=== PATIENT | female | born 1930 | race Caucasian/White ===

== ENCOUNTER 2018-11-05 16:50 | Inpatient (IN) | payer BC, OTHER ==
[2018-11-05 16:58] VITALS: BMI 22.2
--- NOTE | 2018-11-05 16:58 | PDOC ---
Rapid Medical Evaluation Chief Complaint: Shortness of Breath Medical Evaluation: 11/05/18 16:53 I have performed a brief in-person evaluation of this patient. The patient presents with a chief complaint of:SOB, no CP// Palp / pressure - sent from Dr Wilcox Pertinent physical exam findings: Tachypnea ,moist I have ordered the following: EKG, CMP, CBC, BNP, The patient will proceed to the ED for further evaluation. 11/05/18 16:55 Discharge Disposition - Diagnosis SOB (shortness of breath) - Referrals - Patient Instructions - Post Discharge Activity
[2018-11-05 17:26] LABS: BASO % 0.8 % (0-2.0); EOS % 0.5 % (0-4.5); HEMATOCRIT 33.5 % (32.4-45.2); HEMOGLOBIN 11.1 GM/dL (10.7-15.3); LYMPH % 11.6 % (8-40); MCH 28.3 pg (25.7-33.7); MEAN CELL VOLUME 85.8 fl (80-96); MEAN PLT VOLUME 8.9 fl (7.5-11.1); NEUT % 79.1 % (42.8-82.8); PLATELET COUNT 211 K/MM3 (134-434); RDW 16.9 % (11.6-15.6); WHITE BLOOD COUNT 7.4 K/mm3 (4.0-10.0)
[2018-11-05 17:42] LABS: INR 1.6 (0.83-1.09)
[2018-11-05 17:57] LABS: ALBUMIN 3.6 g/dl (3.4-5.0); ALK PHOS 78 U/L (45-117); ANION GAP 10 MMOL/L (8-16); BILIRUBIN,TOTAL 1.4 mg/dL (0.2-1); BLOOD UREA NITROGEN 25 mg/dL (7-18); CALCIUM 8.6 mg/dL (8.5-10.1); CHLORIDE 104 mmol/L (98-107); CO2 21 mmol/L (21-32); CREATININE 0.9 mg/dL (0.55-1.3); GLUCOSE,RANDOM 99 mg/dL (74-106); N-TERMINAL BNP 4852.3 pg/ml (5-450); POTASSIUM 3.9 mmol/L (3.5-5.1); SGOT/AST 39 U/L (15-37); SGPT/ALT 42 U/L (13-61); SODIUM 135 mmol/L (136-145); TOT PROT 6.8 g/dl (6.4-8.2)
--- NOTE | 2018-11-05 17:58 | PDOC ---
Attending Attestation - HPI HPI: 11/05/18 18:11 The patient is an 88 year old female with a significant past medical history of asthma and hypertension, who presents to the emergency department today, accompanied by and children, complaining of shortness of breath for approximately 4 days, which is worsened upon exertion. Family notes the patient has also had a productive cough. The patient denies any pain. The patient denies chest pain, shortness of breath, headache and dizziness. Denies fever, chills, nausea, vomit, diarrhea and constipation. Denies dysuria, frequency, urgency and hematuria. Allergies: NKA Past surgical history: Social history: No reported PCP: Dr. Wilcox - Physicial Exam PE: 11/05/18 18:23 GENERAL: The patient is in no acute distress. HEAD: Normal with no signs of trauma. EYES: PERRLA, EOMI, sclera anicteric, conjunctiva clear. ENT: Ears normal, nares patent, oropharynx clear without exudates. Moist mucous membranes. NECK: Normal range of motion, supple without lymphadenopathy, JVD, or masses. LUNGS: (+) Dysmic. (+) Basilar crackles. HEART: Heart irregularly irregular. (+) tachycardic. No murmur. ABDOMEN: Soft, nontender, normoactive bowel sounds. No guarding, no rebound. No masses palpable. EXTREMITIES: (+) Bilateral pitting edema 3+ to bilateral knees. Normal range of motion. No clubbing or cyanosis. No erythema, or tenderness. NEUROLOGICAL: Cranial nerves II through XII grossly intact. Normal speech. No focal neurological deficits. MUSCULOSKELETAL: Back non-tender to palpation, no CVA tenderness SKIN: Warm, Dry, normal turgor, no rashes or lesions noted. <Jen Clements - Last Filed: 11/05/18 18:23> - Resident Resident Name: Dangelo Rodriguez - ED Attending Attestation I have performed the following: I have examined & evaluated the patient, The case was reviewed & discussed with the resident, I agree w/resident's findings & plan, Exceptions are as noted - Critical Care Time Total Critical Care Time: 35 Critical Care Statement: The care of this patient involved high complexity decision making to prevent further life threatening deterioration of the patient 's condition and/or to evaluate & treat vital organ system(s) failure or risk of failure. - Medical Decision Making 11/05/18 18:24 Laboratory Tests 11/05/18 11/05/18 11/05/18 17:11 17:11 17:11 WBC 7.4 Hgb 11.1 Hct 33.5 Plt Count 211 INR 1.60 H BUN 25 H Creatinine 0.9 Total Bilirubin 1.4 H AST 39 H ALT 42 Creatine Kinase 123 Troponin I 0.05 B-Natriuretic Peptide 4852.3 H EKG: Afib rate of 123 bpm, axis nml, no st elevations, (+) depressions v4-v6, t waves upright, CXR: Will admit for new onset Afib Pt is a poor historian Can not tell us any of her past medical history Can not tell us her medications Will contact her pharmacy Pharmacy: Atenolol 50mg bid Levothyroxine 25mcg daily Xeralto 20mg daily Advair 1 puff bid ?Simvastatin 20mg (last filled in July) Olmesartan 20/5/12.5 (last filled in June) Pt given Cardizem 10mg with improvement from 150s to 100 Po cardizem ordered CXR - Cardiomegaly, ? left pleural effusion ADMIT to hospitalist overnight for Dr Wilcox <Suir Lam - Last Filed: 11/11/18 10:33> Attestations - Attestations 11/05/18 18:11 Documentation prepared by Jen Clements, acting as medical insurance verifier for Suri Lam MD. <Jen Clements - Last Filed: 11/05/18 18:23>
--- NOTE | 2018-11-05 18:01 | PDOC ---
History of Present Illness - General Chief Complaint: Shortness of Breath Stated Complaint: SHORT OF BREATH WEAKNESS Time Seen by Provider: 11/05/18 17:52 - History of Present Illness Initial Comments: 11/05/18 17:59 88 yo F with h/o HTN, CAD s/p stent placement x 1, who p/w lightheadedness, and SOB. Patient reports 4 days of worsening, Garcia, lightheadedness, fatigue, BL LE swelling. Reports ongoing symptoms x 2 years with no identifiable triggers or alleviators. Denies recent fall, LOC, head/neck/back trauma. No home duoneb or O2 requirements. Patient ambulatory without assistance. Lives at home with . Patient denies ARREGUIN, vision change, palpitations, orthopnea, PND, leg pain, N/V, F ,C, CP, SOB, urinary complaints, abdominal pain, diarrhea, constipation, BPR, hematuira, sensory changes. PMHx: as noted above. Denies h/o MO, CABG, DVT/PE, CVA/TIA. ROS: as noted SHx: Denies Etoh, IVDA. Denies tobacco use. Allergies: NKDA PMD: Dr. Wilcox Past History - Past Medical History Allergies/Adverse Reactions: Allergies Allergy/AdvReac Type Severity Reaction Status Date / Time No Known Allergies Allergy Verified 11/05/18 16:58 Asthma: Yes COPD: No HTN: Yes Hypercholesterolemia: Yes - Suicide/Smoking/Psychosocial Hx Smoking History: Never smoked Have you smoked in the past 12 months: No Information on smoking cessation initiated: No Hx Alcohol Use: No Drug/Substance Use Hx: No Review of Systems - Review of Systems Comments:: 11/05/18 18:00 GENERAL/CONSTITUTIONAL: No fever or chills. No weakness. HEAD, EYES, EARS, NOSE AND THROAT: No change in vision. No ear pain or discharge. No sore throat. CARDIOVASCULAR: + SOB. No chest pain. RESPIRATORY: No cough, wheezing, or hemoptysis. GASTROINTESTINAL: No nausea, vomiting, diarrhea or constipation. GENITOURINARY: No dysuria, frequency, or change in urination. MUSCULOSKELETAL: No joint or muscle swelling or pain. No neck or back pain. SKIN: No rash NEUROLOGIC: + lightheaded. No headache, vertigo, loss of consciousness, or change in strength/sensation. ENDOCRINE: No increased thirst. No abnormal weight change HEMATOLOGIC/LYMPHATIC: No anemia, easy bleeding, or history of blood clots. ALLERGIC/IMMUNOLOGIC: No hives or skin allergy. *Physical Exam - Vital Signs Last Vital Signs Temp Pulse Resp BP Pulse Ox 97.2 F L 97 H 26 H 90/50 L 93 L 11/05/18 16:53 11/05/18 16:53 11/05/18 16:53 11/05/18 16:53 11/05/18 16:53 - Physical Exam Comments: 11/05/18 18:00 GENERAL: Awake, alert, and fully oriented, in no acute distress HEAD: No signs of trauma, normocephalic, atraumatic EYES: PERRLA, EOMI, sclera anicteric, conjunctiva clear ENT: Hearing grossly normal, nares patent, oropharynx clear without exudates. Moist mucosa NECK: Normal ROM, supple, no lymphadenopathy, JVD, or masses LUNGS: + diminshed BL lung sounds at bases. difficutly speaking in full sentences,absent rales. HEART: Irregular rate and rhythm, normal S1 and S2, no murmurs, rubs or gallops , peripheral pulses normal and equal bilaterally. ABDOMEN: Soft, nontender, normoactive bowel sounds. No guarding, no rebound. No masses EXTREMITIES : 2+ pitting edema. Normal inspection, Normal range of motion. No clubbing or cyanosis. Peripheral pulses 2 + symmetric throughout. NEUROLOGICAL: Cranial nerves II through XII grossly intact. Normal speech, normal gait, no focal sensorimotor deficits SKIN: Warm, Dry, normal turgor, no rashes or lesions noted Moderate Sedation - Procedure Monitoring Vital Signs: Procedure Monitoring Vital Signs Temperature 97.2 F L 11/05/18 16:53 Pulse Rate 97 H 11/05/18 16:53 Respiratory Rate 26 H 11/05/18 16:53 Blood Pressure 90/50 L 11/05/18 16:53 O2 Sat by Pulse Oximetry (%) 93 L 11/05/18 16:53 Heart Score/ECG Review - History History: Slightly suspicious - Electrocardiogram EKG: Non specific repolarization disturbance - Age Age: >/= 65 - Risk Factors Risk Factors Heart Score: Yes Hx Hypercholesterolemia, Yes Hx Hypertension, Yes Smoking History, Yes Positive family hx of cardiac disease Based on the list above the patient has:: >/=3 risk factors or Hx atherosclerotic disease - Troponin Troponin: </= normal limit - Score Heart Score - Total: 5 ED Treatment Course - LABORATORY CBC & Chemistry Diagram: 11/05/18 17:11 11/05/18 17:11 - ADDITIONAL ORDERS Additional order review: Laboratory Results 11/05/18 17:11 PT with INR 19.00 H INR 1.60 H 11/05/18 17:11 RBC 3.90 MCV 85.8 MCHC 33.0 RDW 16.9 H MPV 8.9 Neutrophils % 79.1 Lymphocytes % 11.6 Monocytes % 8.0 Eosinophils % 0.5 Basophils % 0.8 Medical Decision Making - Medical Decision Making 11/05/18 18:18 88 yo F with h/o HTN, CAD s/p stent placement x 1, who p/w lightheadedness, and SOB. BP 90/50, RR 26, 93 %O2 RA. Diminished lung sounds BL bases. heart irregular rate and rhythm. BL LE 2 + pitting edema.Denies palpitations ,N/V, F,C , CP, urinary complaints, abdominal pain, diarrhea, constipation, BPR, hematuira , sensory changes. ACS/MO r/o. Will consider cardiac dysarrythmia, CHF, PNA, pericardial and pleural effusion. Low risk PE based on Weils criteria. ED Course: Patien O2 declined to 85 % RA. Placed on 5 L NC. O2 now 100% EKG: Afib w/ RvR. HR 123, Q waves V2/V3. Nml R wave progression. Nml interval duration. Patient does not recall past h/o Af-ib, but is on eliquis (unknown reason). Lasix 40, [id number], ASA 11/05/18 18:47 CBC: Unremarkable Trop: Neg BNP: 4852 11/05/18 18:54 CXR: Left sided pleural effusion 11/05/18 18:54 Heart score ~5 11/05/18 18:55 Plan to admit tele. 11/05/18 18:[address] Camacho. Admit to telemetry. *DC/Admit/Observation/Transfer Diagnosis at time of Disposition: SOB (shortness of breath) Acute CHF Qualifiers: Heart failure type: unspecified Qualified Code(s): I50.9 - Heart failure, unspecified - Discharge Dispostion Condition at time of disposition: Stable Decision to Admit order: Yes - Referrals Referrals: Tesha Wilcox MD [Primary Care Provider] - - Patient Instructions - Post Discharge Activity
[2018-11-05] MEDS ORDERED: dilTIAZem HCL 50 MG/10 ML - 10 ML VIAL IVPUSH ONE (18:02)
[2018-11-05] MEDS ORDERED: FUROSEMIDE 40 MG/4 ML INJECTABLE VIAL IVPUSH ONE (18:02)
[2018-11-05] MEDS ORDERED: ASPIRIN 81 MG CHEWABLE TABLETS PO ONE (18:11)
[2018-11-05] MEDS ORDERED: FUROSEMIDE 40 MG/4 ML INJECTABLE VIAL ONE (18:23)
[2018-11-05] MEDS ORDERED: dilTIAZem HCL 30 MG TABLET (FP) PO ONE (18:24)
[2018-11-05] MEDS ORDERED: ASPIRIN 81 MG CHEWABLE TABLETS ONE (18:30)
[2018-11-05] MEDS ORDERED: dilTIAZem HCL 30 MG TABLET (FP) ONE (18:31)
--- NOTE | 2018-11-05 20:15 | HP ---
CHIEF COMPLAINT: shortness of breath PCP: Brenden HISTORY OF PRESENT ILLNESS: 88yo woman c/o SOB for one week with cough, whitish sputum. Decreased exercise tolerance. Denied overt chest pain. +orthopnea. Reports history of afib for which she takes Xarelto, followed by Dr. Wilcox. Had echo 4 yrs ago. ER course was notable for: (1) Furosemide (2) ekg (3) Recent Travel: none reported PAST MEDICAL HISTORY: CAD- stent -1979, asthma, HTN, afib PAST SURGICAL HISTORY: none Social History: Smoking: quit, smoked 30 pack years Alcohol: 1 glass of wine a day Drugs: no Family History: brother with CAD Allergies No Known Allergies Allergy (Verified 11/05/18 16:58) HOME MEDICATIONS: REVIEW OF SYSTEMS CONSTITUTIONAL: Absent: fever, chills, diaphoresis, generalized weakness, malaise, loss of appetite, weight change HEENT: Absent: rhinorrhea, nasal congestion, throat pain, throat swelling, difficulty swallowing, mouth swelling, ear pain, eye pain, visual changes CARDIOVASCULAR: Absent: chest pain, syncope, palpitations, irregular heart rate, lightheadedness , peripheral edema RESPIRATORY: Absent: wheezing, stridor, hemoptysis present- shortness of breath, dyspnea with exertion, orthopnea, cough, GASTROINTESTINAL: Absent: abdominal pain, abdominal distension, nausea, vomiting, diarrhea, constipation, melena, hematochezia GENITOURINARY: Absent: dysuria, frequency, urgency, hesitancy, hematuria, flank pain, genital pain MUSCULOSKELETAL: Absent: myalgia, arthralgia, joint swelling, back pain, neck pain SKIN: Absent: rash, itching, pallor HEMATOLOGIC/IMMUNOLOGIC: Absent: easy bleeding, easy bruising, lymphadenopathy, frequent infections ENDOCRINE: Absent: unexplained weight gain, unexplained weight loss, heat intolerance, cold intolerance NEUROLOGIC: Absent: headache, focal weakness or paresthesias, dizziness, unsteady gait, seizure, mental status changes, bladder or bowel incontinence PSYCHIATRIC: Absent: anxiety, depression, suicidal or homicidal ideation, hallucinations. PHYSICAL EXAMINATION Vital Signs - 24 hr 11/05/18 11/05/18 16:53 18:24 Temperature 97.2 F L Pulse Rate 97 H Pulse Rate [ 100 H Apical] Respiratory 26 H Rate Blood Pressure 90/50 L Blood Pressure 139/84 [Right Arm] O2 Sat by Pulse 93 L Oximetry (%) GENERAL: Awake, alert, and fully oriented, appears frail HEAD: Normal with no signs of trauma. EYES: Pupils equal, round and reactive to light, extraocular movements intact, sclera anicteric, conjunctiva clear. No lid lag. EARS, NOSE, THROAT: Ears normal, nares patent, oropharynx clear without exudates. Moist mucous membranes. NECK: Normal range of motion, supple without lymphadenopathy, JVD, or masses. LUNGS: Breath sounds equal, clear to auscultation bilaterally. No wheezes, and no crackles. +No accessory muscle use. HEART: Regular rate and rhythm, normal S1 and S2 without murmur, rub or gallop. ABDOMEN: Soft, nontender, not distended, normoactive bowel sounds, no guarding, no rebound, no masses. No hepatomegaly or splenomegaly. MUSCULOSKELETAL: Normal range of motion at all joints. No bony deformities or tenderness. No CVA tenderness. UPPER EXTREMITIES: 2+ pulses, warm, well-perfused. No cyanosis. No clubbing. No peripheral edema. LOWER EXTREMITIES: 2+ pulses, warm, well-perfused. No calf tenderness. 2+ peripheral edema b/l NEUROLOGICAL: Cranial nerves II-XII intact. Normal speech. PSYCHIATRIC: Cooperative. Good eye contact. Appropriate mood and affect. SKIN: Warm, dry, normal turgor, no rashes or lesions noted, normal capillary refill. Laboratory Results - last 24 hr 11/05/18 11/05/18 11/05/18 17:11 17:11 17:11 WBC 7.4 RBC 3.90 Hgb 11.1 Hct 33.5 MCV 85.8 MCH 28.3 MCHC 33.0 RDW 16.9 H Plt Count 211 MPV 8.9 Absolute Neuts (auto) 5.9 Neutrophils % 79.1 Lymphocytes % 11.6 Monocytes % 8.0 Eosinophils % 0.5 Basophils % 0.8 Nucleated RBC % 0 PT with INR 19.00 H INR 1.60 H Sodium 135 L Potassium 3.9 Chloride 104 Carbon Dioxide 21 Anion Gap 10 BUN 25 H Creatinine 0.9 Creat Clearance w eGFR 58.95 Random Glucose 99 Calcium 8.6 Total Bilirubin 1.4 H AST 39 H ALT 42 Alkaline Phosphatase 78 Creatine Kinase 123 Troponin I 0.05 B-Natriuretic Peptide 4852.3 H Total Protein 6.8 Albumin 3.6 TSH 4.59 H ekg reviewed- atrial fibrillation CXR reviewed ASSESSMENT/PLAN: #CHF exacerbation - high bnp, pedal edema b/l -lasix 40mg IV daily -i/o -daily weights -bblocker -ACEi -echo -cardiology consult -1L daily fluid restriction -Na restriction -trend troponin #afib -rate controlled -metroprolol 25mg po bid -c/w Xarelto (pt says she's on it) #Asthma- controlled -albuterol nebulizer prn #HTN -will c/w home meds #CAD -on baby ASA -DVT ppx -Xarelto -Will call pharmacy to verify meds Visit type - Emergency Visit Emergency Visit: Yes ED Registration Date: 11/05/18 Care time: The patient presented to the Emergency Department on the above date and was hospitalized for further evaluation of their emergent condition. - New Patient This patient is new to me today: Yes Date on this admission: 11/05/18 - Critical Care Critical Care patient: No
[2018-11-05] MEDS ORDERED: ALBUTEROL SO4 0.083% IH SOL 2.5 MG/3 ML VIAL.NEB. NEB PRN (20:33)
[2018-11-05] MEDS ORDERED: METOPROLOL TARTRATE 25 MG TABLET (FP) ONE (21:52)
[2018-11-05] MEDS ORDERED: ATORVASTATIN CA 10 MG TABLET (FP) ONE (21:53)
[2018-11-05] MEDS: METOPROLOL TARTRATE 25 MG TABLET (FP) PO SCH (23:20)
[2018-11-05] MEDS: ATORVASTATIN CA 20 MG TABLET (FP) PO SCH (23:20)
[2018-11-06 06:13] LABS: BASO % 0.7 % (0-2.0); EOS % 0.6 % (0-4.5); HEMATOCRIT 31.4 % (32.4-45.2); HEMOGLOBIN 10.3 GM/dL (10.7-15.3); LYMPH % 12.1 % (8-40); MCHC 32.8 g/dl (32.0-36.0); MEAN CELL VOLUME 85.4 fl (80-96); MONO % 8.2 % (3.8-10.2); NEUT % 78.4 % (42.8-82.8); PLATELET COUNT 196 K/MM3 (134-434); RBC 3.67 M/mm3 (3.60-5.2); RDW 16.8 % (11.6-15.6); WHITE BLOOD COUNT 7.4 K/mm3 (4.0-10.0)
[2018-11-06 06:32] LABS: ANION GAP 9 MMOL/L (8-16); BLOOD UREA NITROGEN 23 mg/dL (7-18); CALCIUM 8.3 mg/dL (8.5-10.1); CHLORIDE 102 mmol/L (98-107); CHOLESTEROL 106 mg/dL (50-200); CO2 26 mmol/L (21-32); CREATININE 0.9 mg/dL (0.55-1.3); GLUCOSE,RANDOM 85 mg/dL (74-106); HDL CHOLESTEROL 32 mg/dL (40-60); POTASSIUM 4.1 mmol/L (3.5-5.1); SODIUM 138 mmol/L (136-145); TRIGLYCERIDES 77 mg/dL (0-150)
--- NOTE | 2018-11-06 08:38 | PN ---
Progress Note, Physician - Current Medication List Current Medications: Active Medications Albuterol Sulfate (Ventolin 0.083% Nebulizer Soln -) 1 amp NEB Q6H PRN PRN Reason: SHORT OF BREATH/WHEEZING Aspirin (Ecotrin -) 81 mg PO DAILY [facility] Atorvastatin Calcium (Lipitor -) 20 mg PO HS [facility] Last Admin: 11/05/18 23:20 Dose: 20 mg Furosemide (Lasix Injection -) 40 mg IVPUSH DAILY [facility] Lisinopril (Prinivil) 5 mg PO DAILY [facility] Metoprolol Tartrate (Lopressor -) 25 mg PO BID [facility] Last Admin: 11/05/18 23:20 Dose: 25 mg Rivaroxaban (Xarelto) 15 mg PO DAILY@1800 [facility] - Objective Vital Signs: Vital Signs Temperature 97.9 F 11/06/18 06:00 Pulse Rate 92 H 11/06/18 06:00 Respiratory Rate 18 11/06/18 06:00 Blood Pressure 152/84 11/06/18 06:00 O2 Sat by Pulse Oximetry (%) 98 11/06/18 03:17 Cardiovascular: Yes: Pulse Irregular, S1, S2 Respiratory: Yes: Diminished, On Nasal O2, Rales Gastrointestinal: Yes: Normal Bowel Sounds, Soft Edema: Yes Labs: CBC, BMP 11/06/18 05:58 11/06/18 05:58 INR, PTT INR 1.60 (0.83-1.09) H 11/05/18 17:11 Problem List - Problems (1) Acute CHF Assessment/Plan: -lasix 40mg IV daily -i/o -daily weights -bblocker -ACEi -echo -cardiology consult -1L daily fluid restriction -Na restriction -trend troponin Code(s): I50.9 - HEART FAILURE, UNSPECIFIED Qualifiers: Heart failure type: unspecified Qualified Code(s): I50.9 - Heart failure, unspecified (2) Atrial fibrillation Assessment/Plan: continue with xarelto and metoprolol Code(s): I48.91 - UNSPECIFIED ATRIAL FIBRILLATION (3) HTN (hypertension) Code(s): I10 - ESSENTIAL (PRIMARY) HYPERTENSION
[2018-11-06] MEDS: METOPROLOL TARTRATE 25 MG TABLET (FP) PO SCH ×2 (09:17→21:21)
[2018-11-06] MEDS: FUROSEMIDE 40 MG/4 ML INJECTABLE VIAL IVPUSH SCH (09:17)
[2018-11-06] MEDS: ASPIRIN COATED 81 MG TABLET.EC PO SCH (09:17)
[2018-11-06] MEDS: LISINOPRIL 5 MG TABLET (FP) PO SCH (09:17)
--- NOTE | 2018-11-06 10:09 | ECHO ---
Name: ROVERTO DEJESUS Exam:Adult Echocardiogram Study Date: 11/06/2018 09:22 AM Age: 88 yrs Reason For Study: CHF Height: 59 in Weight: 110 lb BSA: 1.4 m2 MMode/2D Measurements & Calculations IVSd: 0.85 cm Ao root diam: 2.7 cm LVIDd: 4.0 cm LA dimension: 3.9 cm LVIDs: 2.7 cm LVPWd: 1.0 cm LVPWs: 1.5 cm EDV(Teich): 69.6 ml ESV(Teich): 27.4 ml LVOT diam: 1.7 cm LAV (MOD-bp): 49.0 ml TAPSE: 1.5 cm RV S Ke: 11.8 cm/sec Doppler Measurements & Calculations Ao V2 max: 108.5 cm/sec LV V1 max P.2 mmHg Ao max P.7 mmHg LV V1 max: 74.0 cm/sec JONNATHAN(V,D): 1.5 cm2 MR max ke: 509.2 cm/sec TR max ke: 329.3 cm/sec MR max P.9 mmHg TR max P.7 mmHg PA V2 max: 87.6 cm/sec Med Peak E' Ke: 7.8 cm/sec PA max P.1 mmHg Lat Peak E' Ke: 10.0 cm/sec Left Ventricle Ejection Fraction = 50%. Flattened septum is consistent with RV pressure overload. Right Ventricle The right ventricle is grossly normal size. The right ventricular systolic function is grossly normal . Atria The left atrium is mildly dilated. The right atrium is mild to moderately dilated. Mitral Valve The mitral valve is normal in structure and function. There is no mitral valve stenosis. There is mil d to moderate mitral regurgitation. Tricuspid Valve There is moderate to severe tricuspid regurgitation. Right ventricular systolic pressure is elevated at 50- 60mmHg. Aortic Valve The aortic valve opens well. There is mild aortic sclerosis.;. No hemodynamically significant valvula r aortic stenosis. Trace aortic regurgitation. Pulmonic Valve The pulmonic valve is not well seen, but is grossly normal. There is no pulmonic valvular stenosis. Great Vessels The aortic root is normal size. Pericardium/Pleura There is no pericardial effusion. Interpretation Summary Ejection Fraction = 50%. The right ventricular systolic function is grossly normal. The left atrium is mildly dilated. The right atrium is mild to moderately dilated. There is mild to moderate mitral regurgitation. There is moderate to severe tricuspid regurgitation. Right ventricular systolic pressure is elevated at 50-60mmHg. There is mild aortic sclerosis.; There is no pericardial effusion. MD Albert *Yoanna 11/06/2018 10:08 AM
[2018-11-06] MEDS: LIDOCAINE 5% TOPICAL PATCH TP SCH (10:33)
--- NOTE | 2018-11-06 13:19 | EKG ---
Test Reason : Blood Pressure : / mmHG Vent. Rate : 123 BPM Atrial Rate : 115 BPM P-R Int : 000 ms QRS Dur : 074 ms QT Int : 346 ms P-R-T Axes : 000 -03 035 degrees QTc Int : 495 ms ATRIAL FIBRILLATION WITH RAPID VENTRICULAR RESPONSE CANNOT RULE OUT ANTERIOR INFARCT , AGE UNDETERMINED ABNORMAL ECG WHEN COMPARED WITH ECG OF 29-JAN-2001 08:37, ATRIAL FIBRILLATION HAS REPLACED SINUS RHYTHM VENT. RATE HAS INCREASED BY 69 BPM MINIMAL CRITERIA FOR ANTERIOR INFARCT ARE NOW PRESENT Confirmed by GINNY WALTON MD ([id number]) on 11/06/2018 1:19:04 PM Referred By: Confirmed By:GINNY WALTON MD
[2018-11-06] MEDS: RIVAROXABAN 15 MG TABLET PO SCH (17:54)
[2018-11-06] MEDS ORDERED: PT OWN MED DRAWER 7, Y5N ONE (21:19)
[2018-11-06] MEDS: ATORVASTATIN CA 20 MG TABLET (FP) PO SCH (21:21)
[2018-11-06] MEDS: LIDOCAINE PATCH REMOVAL MC SCH (21:21)
[2018-11-07 08:22] LABS: BASO % 0.8 % (0-2.0); EOS % 4.9 % (0-4.5); HEMATOCRIT 32.9 % (32.4-45.2); LYMPH % 13.6 % (8-40); MCH 28.3 pg (25.7-33.7); MCHC 33.5 g/dl (32.0-36.0); MEAN CELL VOLUME 84.4 fl (80-96); MEAN PLT VOLUME 8.9 fl (7.5-11.1); MONO % 9.1 % (3.8-10.2); NEUT % 71.6 % (42.8-82.8); PLATELET COUNT 201 K/MM3 (134-434); RDW 16.8 % (11.6-15.6); WHITE BLOOD COUNT 5.9 K/mm3 (4.0-10.0)
[2018-11-07 08:59] LABS: ALBUMIN 2.9 g/dl (3.4-5.0); ALK PHOS 78 U/L (45-117); ANION GAP 8 MMOL/L (8-16); BILIRUBIN,TOTAL 1.6 mg/dL (0.2-1); BLOOD UREA NITROGEN 20 mg/dL (7-18); CALCIUM 8.2 mg/dL (8.5-10.1); CHLORIDE 101 mmol/L (98-107); CO2 28 mmol/L (21-32); CREATININE 0.8 mg/dL (0.55-1.3); GLUCOSE,RANDOM 83 mg/dL (74-106); POTASSIUM 3.2 mmol/L (3.5-5.1); SGOT/AST 32 U/L (15-37); SGPT/ALT 38 U/L (13-61); SODIUM 137 mmol/L (136-145); TOT PROT 5.6 g/dl (6.4-8.2)
[2018-11-07] MEDS: FUROSEMIDE 40 MG/4 ML INJECTABLE VIAL IVPUSH SCH (09:05)
[2018-11-07] MEDS: LISINOPRIL 5 MG TABLET (FP) PO SCH (09:05)
[2018-11-07] MEDS: LIDOCAINE 5% TOPICAL PATCH TP SCH (09:05)
[2018-11-07] MEDS: ASPIRIN COATED 81 MG TABLET.EC PO SCH (09:05)
[2018-11-07] MEDS: METOPROLOL TARTRATE 25 MG TABLET (FP) PO SCH ×2 (09:05→21:16)
[2018-11-07] MEDS ORDERED: POTASSIUM CHLORIDE TABS 20 MEQ TABLET.ER (FP) PO ONE (11:19)
--- NOTE | 2018-11-07 11:21 | PN ---
Progress Note, Physician - Current Medication List Current Medications: Active Medications Albuterol Sulfate (Ventolin 0.083% Nebulizer Soln -) 1 amp NEB Q6H PRN PRN Reason: SHORT OF BREATH/WHEEZING Aspirin (Ecotrin -) 81 mg PO DAILY [facility] Last Admin: 11/07/18 09:05 Dose: 81 mg Atorvastatin Calcium (Lipitor -) 20 mg PO HS [facility] Last Admin: 11/06/18 21:21 Dose: 20 mg Furosemide (Lasix Injection -) 40 mg IVPUSH DAILY [facility] Last Admin: 11/07/18 09:05 Dose: 40 mg Lidocaine (Lidoderm Patch -) 1 patch TP DAILY [facility] Last Admin: 11/07/18 09:05 Dose: 1 patch Lisinopril (Prinivil) 5 mg PO DAILY [facility] Last Admin: 11/07/18 09:05 Dose: 5 mg Metoprolol Tartrate (Lopressor -) 25 mg PO BID [facility] Last Admin: 11/07/18 09:05 Dose: 25 mg Miscellaneous (Lidoderm Patch Removal) 1 each MC DAILY@2200 [facility] Last Admin: 11/06/18 21:21 Dose: 1 each Rivaroxaban (Xarelto) 15 mg PO DAILY@1800 [facility] Last Admin: 11/06/18 17:54 Dose: 15 mg - Objective Vital Signs: Vital Signs Temperature 97.8 F 11/07/18 01:57 Pulse Rate 88 11/07/18 01:57 Respiratory Rate 16 11/07/18 08:24 Blood Pressure 125/83 11/07/18 01:57 O2 Sat by Pulse Oximetry (%) 98 11/07/18 08:24 Cardiovascular: Yes: S1, S2 Respiratory: Yes: Regular, CTA Bilaterally Gastrointestinal: Yes: Normal Bowel Sounds, Soft Labs: CBC, BMP 11/07/18 06:45 11/07/18 06:45 INR, PTT INR 1.60 (0.83-1.09) H 11/05/18 17:11 Problem List - Problems (1) Acute CHF Assessment/Plan: -lasix 40mg IV daily -i/o -daily weights -bblocker -ACEi -echo -cardiology consult -1L daily fluid restriction -Na restriction -trend troponin -CXR -REPLACE K Code(s): I50.9 - HEART FAILURE, UNSPECIFIED Qualifiers: Heart failure type: unspecified Qualified Code(s): I50.9 - Heart failure, unspecified (2) Atrial fibrillation Assessment/Plan: continue with xarelto and metoprolol Code(s): I48.91 - UNSPECIFIED ATRIAL FIBRILLATION (3) HTN (hypertension) Assessment/Plan: CONTROLLED Code(s): I10 - ESSENTIAL (PRIMARY) HYPERTENSION
--- NOTE | 2018-11-07 12:36 | PN ---
Progress Note (short form) - Note Progress Note: PULMONARY CONSULTATION DICTATED 11/07/18 IMP DYSPNEA ACUTE ON CHRONIC CHF SEVERE PULMONARY HTN AFIB ASTHMA PLAN LASIX O2 AC INHALED BRONCHODILATORS MONITOR LYTES Problem List - Problems (1) Asthma Code(s): J45.909 - UNSPECIFIED ASTHMA, UNCOMPLICATED (2) Acute CHF Code(s): I50.9 - HEART FAILURE, UNSPECIFIED Qualifiers: Heart failure type: unspecified Qualified Code(s): I50.9 - Heart failure, unspecified (3) Atrial fibrillation Code(s): I48.91 - UNSPECIFIED ATRIAL FIBRILLATION (4) HTN (hypertension) Code(s): I10 - ESSENTIAL (PRIMARY) HYPERTENSION (5) SOB (shortness of breath) Code(s): R06.02 - SHORTNESS OF BREATH (6) Pulmonary HTN Code(s): I27.20 - PULMONARY HYPERTENSION, UNSPECIFIED
--- NOTE | 2018-11-07 13:05 | CONS ---
DATE OF CONSULTATION: 11/07/2018 REFERRING PHYSICIAN: Tesha Wilcox MD HISTORY OF PRESENT ILLNESS: The patient is an 88-year-old white female with a past medical history of ASHD, status post stent x1, atrial fibrillation, maintained on Xarelto, hypertension, nonsmoker, asthma, admitted to [facility] with complaint of a 3- to 4-day history of increasing shortness of breath and dyspnea on exertion. Patient also states that the past 3 to 4 days prior to admission started developing shortness of breath with exertion and feeling lightheaded, fatigue, and bilateral lower extremity edema. Denied any chest pain, nausea, vomiting or diaphoresis. Denied any hemoptysis. She did have a cough, nonproductive. She presented to the emergency room with the above. In the ER she was felt to have CHF. She was started on Lasix and transferred up to the medical telemetry unit for further monitoring. Patient states for the past 6 or 7 months she is noted to have progressive dyspnea on exertion which has been progressively increasing in severity but developed severe significant decompensation over the past couple of days. There is no history of recent travel. There is no history of DVT or PE in the past. PAST MEDICAL HISTORY: Again includes atrial fibrillation, ASHD, status post stents, hypertension, asthma. SOCIAL HISTORY: Nonsmoker. No occupational exposures. MEDICATIONS: Prior to admission include Advair, Xarelto, Synthroid, atenolol. Current medications include Prinivil, Lidoderm, Lopressor, Lasix, aspirin, Ecotrin, K-Dur, Xarelto. PHYSICAL EXAMINATION:General: The patient is an elderly white female, well awake, alert, mildly dyspneic but in no acute distress. Vital Signs: She is afebrile, blood pressure is 125/64, respiratory rate is 18 , O2 saturation is 97% on room air. HEENT: Normocephalic, atraumatic. Neck: Supple. Heart: Irregularly irregular with S1 and S2. Chest: Few bibasilar crackles. Abdomen: Soft. Bowel sounds positive. Extremities: No cyanosis or edema. LABORATORIES: BUN 20, creatinine 0.8. BNP is 4852. TSH is 459. INR is 1.6. WBC is 5.9, hemoglobin 11, hematocrit 32.9. Echo reveals severe pulmonary hypertension with a right ventricular systolic pressure of 50 to 60 mmHg. Very mild to moderately dilated right atrium. Left atrium mildly dilated. LV function ejection fraction is 50%. Right ventricular systolic function is within normal limits. IMPRESSION: 1. Acute respiratory distress, likely secondary to acute on chronic congestive heart failure. 2. Atrial fibrillation. 3. History of asthma. 4. Atherosclerotic heart disease, status post stent. 5. Pulmonary hypertension. PLAN: Continue Lasix. Supplemental O2. Inhaled bronchodilators. Continue Xarelto. Monitor heart rate. Obtain followup chest x-rays. Thank you. Will follow closely with you. ROSA HESS M.D. [id number] MTDD
--- NOTE | 2018-11-07 13:52 | CON.CARD ---
Consult Consult Specialty:: Cardiology Referred by:: Brenden Reason for Consultation:: sob - History of Present Illness Chief Complaint: sob History of Present Illness: 88 yo F with h/o HTN, CAD s/p stent placement x 1, PAF not on AC, who was admitted with lightheadedness, edema and SOB x 4 days. She responded well to diuretics. Echo 11/06/18 EF 50%, normal RV, LAE, KIRSTEN, mild to mod MR, mod to severe TR pap 50 -60 - History Source History Provided By: Patient, Family Member, Medical Record - Past Medical History ...: No - Alcohol/Substance Use Hx Alcohol Use: No - Smoking History Smoking history: Former smoker Have you smoked in the past 12 months: No Home Medications - Allergies Allergies/Adverse Reactions: Allergies Allergy/AdvReac Type Severity Reaction Status Date / Time No Known Allergies Allergy Verified 11/05/18 16:58 Vital Signs: Vital Signs Temperature 98.2 F 11/07/18 09:00 Pulse Rate 97 H 11/07/18 09:00 Respiratory Rate 18 11/07/18 09:00 Blood Pressure 125/64 11/07/18 09:00 O2 Sat by Pulse Oximetry (%) 98 11/07/18 08:24 Constitutional: Yes: No Distress, Calm Eyes: Yes: Conjunctiva Clear, EOM Intact HENT: Yes: Atraumatic, Normocephalic Neck: Yes: Supple, Trachea Midline Respiratory: Yes: CTA Bilaterally Gastrointestinal: Yes: Normal Bowel Sounds, Soft Cardiovascular: Yes: Pulse Irregular JVD: Yes Carotid Bruit: No PMI: Non-Displaced Heart Sounds: Yes: S1, S2 Murmur: Yes: Systolic Murmur, Grade 2 Extremities: Yes: WNL Edema: Yes Edema: LLE: Trace, RLE: Trace Peripheral Pulses WNL: Yes - Other Data Labs, Other Data: CBC, BMP 11/07/18 06:45 11/07/18 06:45 INR, PTT INR 1.60 (0.83-1.09) H 11/05/18 17:11 Imaging - Results Chest X-ray: Report Reviewed EKG: Report Reviewed Other: Report Reviewed (echo reviewed) Assessment/Plan 88 yo F with h/o HTN, CAD s/p stent placement x 1, PAF not on AC, who was admitted with lightheadedness, edema and SOB x 4 days. She responded well to diuretics. Echo 11/06/18 EF 50%, normal RV, LAE, KIRSTEN, mild to mod MR, mod to severe TR pap 50 -60 1. SOB--likely due to pulmonary HTN from chronic diastolic CHF. -continue diuretics. -conservative care. 2. Afib -given her risk factors for stroke she should continue on Xarelto. Rates are controlled. -cont tele one more day.
[2018-11-07] MEDS: RIVAROXABAN 15 MG TABLET PO SCH (17:16)
[2018-11-07] MEDS: ATORVASTATIN CA 20 MG TABLET (FP) PO SCH (21:16)
[2018-11-07] MEDS: LIDOCAINE PATCH REMOVAL MC SCH (21:16)
[2018-11-08 07:57] LABS: ANION GAP 9 MMOL/L (8-16); BLOOD UREA NITROGEN 20 mg/dL (7-18); CALCIUM 8.3 mg/dL (8.5-10.1); CHLORIDE 101 mmol/L (98-107); CO2 27 mmol/L (21-32); CREATININE 0.8 mg/dL (0.55-1.3); GLUCOSE,RANDOM 87 mg/dL (74-106); MAGNESIUM 2.2 mg/dL (1.8-2.4); POTASSIUM 3.8 mmol/L (3.5-5.1); SODIUM 138 mmol/L (136-145)
[2018-11-08] MEDS: FUROSEMIDE 40 MG/4 ML INJECTABLE VIAL IVPUSH SCH (09:28)
[2018-11-08] MEDS: METOPROLOL TARTRATE 25 MG TABLET (FP) PO SCH ×2 (09:28→21:27)
[2018-11-08] MEDS: LIDOCAINE 5% TOPICAL PATCH TP SCH (09:28)
[2018-11-08] MEDS: ASPIRIN COATED 81 MG TABLET.EC PO SCH (09:28)
[2018-11-08] MEDS: LISINOPRIL 5 MG TABLET (FP) PO SCH (09:28)
[2018-11-08] MEDS: POTASSIUM CHLORIDE TABS 20 MEQ TABLET.ER (FP) PO SCH (09:28)
--- NOTE | 2018-11-08 11:45 | PN ---
Progress Note, Physician History of Present Illness: pulmonary alert,oob-chair,feeling better,less dyspneric - Current Medication List Current Medications: Active Medications Albuterol Sulfate (Ventolin 0.083% Nebulizer Soln -) 1 amp NEB Q6H PRN PRN Reason: SHORT OF BREATH/WHEEZING Aspirin (Ecotrin -) 81 mg PO DAILY [facility] Last Admin: 11/08/18 09:28 Dose: 81 mg Atorvastatin Calcium (Lipitor -) 20 mg PO HS [facility] Last Admin: 11/07/18 21:16 Dose: 20 mg Furosemide (Lasix Injection -) 40 mg IVPUSH DAILY [facility] Last Admin: 11/08/18 09:28 Dose: 40 mg Lidocaine (Lidoderm Patch -) 1 patch TP DAILY [facility] Last Admin: 11/08/18 09:28 Dose: 1 patch Lisinopril (Prinivil) 5 mg PO DAILY [facility] Last Admin: 11/08/18 09:28 Dose: 5 mg Metoprolol Tartrate (Lopressor -) 25 mg PO BID [facility] Last Admin: 11/08/18 09:28 Dose: 25 mg Miscellaneous (Lidoderm Patch Removal) 1 each MC DAILY@2200 [facility] Last Admin: 11/07/18 21:16 Dose: 1 each Potassium Chloride (K-Dur -) 20 meq PO DAILY [facility] Last Admin: 11/08/18 09:28 Dose: 20 meq Rivaroxaban (Xarelto) 15 mg PO DAILY@1800 [facility] Last Admin: 11/07/18 17:16 Dose: 15 mg - Objective Vital Signs: Vital Signs Temperature 97.8 F 11/08/18 06:48 Pulse Rate 98 H 11/08/18 06:48 Respiratory Rate 18 11/08/18 06:48 Blood Pressure 136/79 11/08/18 06:48 O2 Sat by Pulse Oximetry (%) 97 11/07/18 19:33 Constitutional: Yes: Well Nourished, Calm Eyes: Yes: WNL HENT: Yes: WNL Neck: Yes: WNL Cardiovascular: Yes: Pulse Irregular, S1, S2 Respiratory: Yes: Diminished Gastrointestinal: Yes: Normal Bowel Sounds, Soft Extremities: Yes: WNL Edema: No Labs: CBC, BMP 11/08/18 06:30 Problem List - Problems (1) Asthma Code(s): J45.909 - UNSPECIFIED ASTHMA, UNCOMPLICATED (2) Acute CHF Code(s): I50.9 - HEART FAILURE, UNSPECIFIED Qualifiers: Heart failure type: unspecified Qualified Code(s): I50.9 - Heart failure, unspecified (3) Atrial fibrillation Code(s): I48.91 - UNSPECIFIED ATRIAL FIBRILLATION (4) HTN (hypertension) Code(s): I10 - ESSENTIAL (PRIMARY) HYPERTENSION (5) SOB (shortness of breath) Code(s): R06.02 - SHORTNESS OF BREATH (6) Pulmonary HTN Code(s): I27.20 - PULMONARY HYPERTENSION, UNSPECIFIED Assessment/Plan IMP DYSPNEA IMPROVING ACUTE ON CHRONIC CHF IMPROVING SEVERE PULMONARY HTN AFIB ASTHMA PLAN LASIX O2 AC INHALED BRONCHODILATORS MONITOR LYTES Problem List - Problems (1) Asthma Code(s): J45.909 - UNSPECIFIED ASTHMA, UNCOMPLICATED (2) Acute CHF Code(s): I50.9 - HEART FAILURE, UNSPECIFIED Qualifiers: Heart failure type: unspecified Qualified Code(s): I50.9 - Heart failure, unspecified (3) Atrial fibrillation Code(s): I48.91 - UNSPECIFIED ATRIAL FIBRILLATION (4) HTN (hypertension) Code(s): I10 - ESSENTIAL (PRIMARY) HYPERTENSION (5) SOB (shortness of breath) Code(s): R06.02 - SHORTNESS OF BREATH (6) Pulmonary HTN Code(s): I27.20 - PULMONARY HYPERTENSION, UNSPECIFIED
--- NOTE | 2018-11-08 11:54 | PN ---
Progress Note, Physician - Current Medication List Current Medications: Active Medications Albuterol Sulfate (Ventolin 0.083% Nebulizer Soln -) 1 amp NEB Q6H PRN PRN Reason: SHORT OF BREATH/WHEEZING Aspirin (Ecotrin -) 81 mg PO DAILY [facility] Last Admin: 11/08/18 09:28 Dose: 81 mg Atorvastatin Calcium (Lipitor -) 20 mg PO HS [facility] Last Admin: 11/07/18 21:16 Dose: 20 mg Furosemide (Lasix Injection -) 40 mg IVPUSH DAILY [facility] Last Admin: 11/08/18 09:28 Dose: 40 mg Lidocaine (Lidoderm Patch -) 1 patch TP DAILY [facility] Last Admin: 11/08/18 09:28 Dose: 1 patch Lisinopril (Prinivil) 5 mg PO DAILY [facility] Last Admin: 11/08/18 09:28 Dose: 5 mg Metoprolol Tartrate (Lopressor -) 25 mg PO BID [facility] Last Admin: 11/08/18 09:28 Dose: 25 mg Miscellaneous (Lidoderm Patch Removal) 1 each MC DAILY@2200 [facility] Last Admin: 11/07/18 21:16 Dose: 1 each Potassium Chloride (K-Dur -) 20 meq PO DAILY [facility] Last Admin: 11/08/18 09:28 Dose: 20 meq Rivaroxaban (Xarelto) 15 mg PO DAILY@1800 [facility] Last Admin: 11/07/18 17:16 Dose: 15 mg - Objective Vital Signs: Vital Signs Temperature 97.8 F 11/08/18 06:48 Pulse Rate 98 H 11/08/18 06:48 Respiratory Rate 18 11/08/18 10:00 Blood Pressure 136/79 11/08/18 06:48 O2 Sat by Pulse Oximetry (%) 96 11/08/18 10:00 Cardiovascular: Yes: S1, S2 Respiratory: Yes: Regular, CTA Bilaterally Gastrointestinal: Yes: Normal Bowel Sounds, Soft Labs: CBC, BMP 11/07/18 06:45 11/08/18 06:30 INR, PTT INR 1.60 (0.83-1.09) H 11/05/18 17:11 Problem List - Problems (1) Acute CHF Assessment/Plan: -lasix 40mg IV daily --to po -i/o -daily weights -bblocker -ACEi -echo -cardiology consult noted -1L daily fluid restriction -Na restriction -CXR nad -REPLACE K Code(s): I50.9 - HEART FAILURE, UNSPECIFIED Qualifiers: Heart failure type: unspecified Qualified Code(s): I50.9 - Heart failure, unspecified (2) Atrial fibrillation Assessment/Plan: continue with xarelto and metoprolol Code(s): I48.91 - UNSPECIFIED ATRIAL FIBRILLATION (3) HTN (hypertension) Assessment/Plan: CONTROLLED Code(s): I10 - ESSENTIAL (PRIMARY) HYPERTENSION
--- NOTE | 2018-11-08 12:21 | PN ---
Progress Note, Physician Chief Complaint: less sob tele negative History of Present Illness: 88 yo F with h/o HTN, CAD s/p stent placement x 1, PAF AC, who was admitted with lightheadedness, edema and SOB x 4 days. She responded well to diuretics. Echo 11/06/18 EF 50%, normal RV, LAE, KIRSTEN, mild to mod MR, mod to severe TR pap 50 -60 - Current Medication List Current Medications: Active Medications Albuterol Sulfate (Ventolin 0.083% Nebulizer Soln -) 1 amp NEB Q6H PRN PRN Reason: SHORT OF BREATH/WHEEZING Aspirin (Ecotrin -) 81 mg PO DAILY [facility] Last Admin: 11/08/18 09:28 Dose: 81 mg Atorvastatin Calcium (Lipitor -) 20 mg PO HS [facility] Last Admin: 11/07/18 21:16 Dose: 20 mg Furosemide (Lasix -) 40 mg PO DAILY [facility] Lidocaine (Lidoderm Patch -) 1 patch TP DAILY [facility] Last Admin: 11/08/18 09:28 Dose: 1 patch Lisinopril (Prinivil) 5 mg PO DAILY [facility] Last Admin: 11/08/18 09:28 Dose: 5 mg Metoprolol Tartrate (Lopressor -) 25 mg PO BID [facility] Last Admin: 11/08/18 09:28 Dose: 25 mg Miscellaneous (Lidoderm Patch Removal) 1 each MC DAILY@2200 [facility] Last Admin: 11/07/18 21:16 Dose: 1 each Potassium Chloride (K-Dur -) 20 meq PO DAILY [facility] Last Admin: 11/08/18 09:28 Dose: 20 meq Rivaroxaban (Xarelto) 15 mg PO DAILY@1800 [facility] Last Admin: 11/07/18 17:16 Dose: 15 mg - Objective Vital Signs: Vital Signs Temperature 97.8 F 11/08/18 06:48 Pulse Rate 98 H 11/08/18 06:48 Respiratory Rate 18 11/08/18 10:00 Blood Pressure 136/79 11/08/18 06:48 O2 Sat by Pulse Oximetry (%) 96 11/08/18 10:00 Constitutional: Yes: No Distress, Calm Eyes: Yes: Conjunctiva Clear, EOM Intact HENT: Yes: Normocephalic Neck: Yes: Trachea Midline Cardiovascular: Yes: Regular Rate and Rhythm Respiratory: Yes: CTA Bilaterally Gastrointestinal: Yes: Normal Bowel Sounds, Soft Musculoskeletal: Yes: WNL Extremities: Yes: WNL Edema: Yes Edema: LLE: Trace, RLE: Trace Labs: CBC, BMP 11/07/18 06:45 11/08/18 06:30 INR, PTT INR 1.60 (0.83-1.09) H 11/05/18 17:11 Assessment/Plan 88 yo F with h/o HTN, CAD s/p stent placement x 1, PAF on AC, who was admitted with lightheadedness, edema and SOB x 4 days. She responded well to diuretics. Echo 11/06/18 EF 50%, normal RV, LAE, KIRSTEN, mild to mod MR, mod to severe TR pap 50 -60 1. SOB--likely due to pulmonary HTN from chronic diastolic CHF. -continue diuretics. -conservative care. 2. Afib -given her risk factors for stroke she should continue on Xarelto. Rates are controlled. -stable to stop telemetry. Will follow as needed.
[2018-11-08] MEDS ORDERED: PT OWN MED DRAWER 7, Y5N ONE (16:48)
[2018-11-08] MEDS: RIVAROXABAN 15 MG TABLET PO SCH (16:59)
[2018-11-08] MEDS: ATORVASTATIN CA 20 MG TABLET (FP) PO SCH (21:26)
[2018-11-08] MEDS: LIDOCAINE PATCH REMOVAL MC SCH (21:27)
[2018-11-09] MEDS ORDERED: FUROSEMIDE 40 MG TABLET (FP) PO SCH (10:00)
[2018-11-09] MEDS: LIDOCAINE 5% TOPICAL PATCH TP SCH (10:03)
[2018-11-09] MEDS: ASPIRIN COATED 81 MG TABLET.EC PO SCH (10:04)
[2018-11-09] MEDS: POTASSIUM CHLORIDE TABS 20 MEQ TABLET.ER (FP) PO SCH (10:04)
[2018-11-09] MEDS: METOPROLOL TARTRATE 25 MG TABLET (FP) PO SCH (10:04)
[2018-11-09] MEDS: LISINOPRIL 5 MG TABLET (FP) PO SCH (10:05)
[2018-11-09 10:52] VITALS: TEMP 97.8
--- NOTE | 2018-11-09 11:27 | PN ---
Progress Note, Physician History of Present Illness: PULMONARY ' ALERT,FEELING BETTER,LESS DYSPNEIC,-CP - Current Medication List Current Medications: Active Medications Albuterol Sulfate (Ventolin 0.083% Nebulizer Soln -) 1 amp NEB Q6H PRN PRN Reason: SHORT OF BREATH/WHEEZING Last Admin: 11/08/18 20:30 Dose: 1 amp Aspirin (Ecotrin -) 81 mg PO DAILY [facility] Last Admin: 11/09/18 10:04 Dose: 81 mg Atorvastatin Calcium (Lipitor -) 20 mg PO HS [facility] Last Admin: 11/08/18 21:26 Dose: 20 mg Furosemide (Lasix -) 40 mg PO DAILY [facility] Last Admin: 11/09/18 10:04 Dose: 40 mg Lidocaine (Lidoderm Patch -) 1 patch TP DAILY [facility] Last Admin: 11/09/18 10:03 Dose: 1 patch Lisinopril (Prinivil) 5 mg PO DAILY [facility] Last Admin: 11/09/18 10:05 Dose: Not Given Metoprolol Tartrate (Lopressor -) 25 mg PO BID [facility] Last Admin: 11/09/18 10:04 Dose: 25 mg Miscellaneous (Lidoderm Patch Removal) 1 each MC DAILY@2200 [facility] Last Admin: 11/08/18 21:27 Dose: Not Given Potassium Chloride (K-Dur -) 20 meq PO DAILY [facility] Last Admin: 11/09/18 10:04 Dose: 20 meq Rivaroxaban (Xarelto) 15 mg PO DAILY@1800 [facility] Last Admin: 11/08/18 16:59 Dose: 15 mg - Objective Vital Signs: Vital Signs Temperature 97.8 F 11/09/18 10:52 Pulse Rate 110 H 11/09/18 10:52 Respiratory Rate 18 11/09/18 10:52 Blood Pressure 105/77 11/09/18 10:52 O2 Sat by Pulse Oximetry (%) 96 11/09/18 08:40 Constitutional: Yes: Well Nourished, Calm Eyes: Yes: WNL HENT: Yes: WNL Neck: Yes: WNL Cardiovascular: Yes: Pulse Irregular, S2, S3 Respiratory: Yes: Diminished, Rales (FEW CRACKLES RADHA) Gastrointestinal: Yes: Normal Bowel Sounds, Soft Extremities: Yes: WNL Edema: No Problem List - Problems (1) Asthma Code(s): J45.909 - UNSPECIFIED ASTHMA, UNCOMPLICATED (2) Acute CHF Code(s): I50.9 - HEART FAILURE, UNSPECIFIED Qualifiers: Heart failure type: unspecified Qualified Code(s): I50.9 - Heart failure, unspecified (3) Atrial fibrillation Code(s): I48.91 - UNSPECIFIED ATRIAL FIBRILLATION (4) HTN (hypertension) Code(s): I10 - ESSENTIAL (PRIMARY) HYPERTENSION (5) SOB (shortness of breath) Code(s): R06.02 - SHORTNESS OF BREATH (6) Pulmonary HTN Code(s): I27.20 - PULMONARY HYPERTENSION, UNSPECIFIED Assessment/Plan IMP DYSPNEA IMPROVING ACUTE ON CHRONIC CHF IMPROVING SEVERE PULMONARY HTN AFIB ASTHMA PLAN LASIX O2 AC INHALED BRONCHODILATORS MONITOR LYTES Problem List - Problems (1) Asthma Code(s): J45.909 - UNSPECIFIED ASTHMA, UNCOMPLICATED (2) Acute CHF Code(s): I50.9 - HEART FAILURE, UNSPECIFIED Qualifiers: Heart failure type: unspecified Qualified Code(s): I50.9 - Heart failure, unspecified (3) Atrial fibrillation Code(s): I48.91 - UNSPECIFIED ATRIAL FIBRILLATION (4) HTN (hypertension) Code(s): I10 - ESSENTIAL (PRIMARY) HYPERTENSION (5) SOB (shortness of breath) Code(s): R06.02 - SHORTNESS OF BREATH (6) Pulmonary HTN Code(s): I27.20 - PULMONARY HYPERTENSION, UNSPECIFIED
--- NOTE | 2018-11-09 12:28 | CONS ---
DATE OF CONSULTATION: 11/09/2018 PHYSICAL MEDICINE REHABILITATION CONSULTATION REFERRING PHYSICIAN: Tesha Wilcox MD HISTORY OF PRESENT ILLNESS: The patient is an 88-year-old woman with past medical history of atrial fibrillation on Xarelto who was admitted with 1-week history of cough, fatigue, orthopnea. On admission, patient was diagnosed with congestive heart failure. Chest x-ray demonstrated no infiltrate or effusion. Echocardiogram showed ejection fraction of 50%, [id number] tricuspid regurgitation, normal right ventricular function. Blood work on admission, slightly low sodium 135, elevated BUN of 35 to creatinine 0.9. She had normal potassium 3.9, chloride 104, CO2 of 21, and INR was 1.60. CBC showed normal WBC 7.4, hemoglobin 11.1, platelet count 211. TSH was elevated at 4.59. Free T4 was normal at 1.38. Blood work done on November 07 demonstrated a low potassium of 3.2 otherwise fairly stable chemistry as well as CBC. Potassium repeated on November 08 normalized to 3.8 with sodium 134, chloride 101, BUN 20, creatinine 0.8. Her albumin is low at 2.9. Patient was seen by Physical Therapy, able to transfer sit to stand with contact guard ambulating 70 feet without assistive device with contact guard level. Patient herself states she feels fairly well without any pain, any lightheaded, dizziness, any shortness of breath or joint or muscle arthralgias. REVIEW OF PAST MEDICAL AND SURGICAL HISTORY: Otherwise significant for coronary artery disease, status post stent, history of asthma, hypertension, atrial fibrillation. SOCIAL HISTORY: Patient lives wither in a multilevel home. There are 5-7 steps to enter depending on the route and 12-15 steps to the second level. Patient states, for the most part, she states on the first level. Premorbidly she was independent, ambulatory without assistive device. Current function as above. REVIEW OF SYSTEMS: She denies any headache, any lightheadedness, any dizziness. No blurry vision, double vision, or change of vision. No nausea, vomiting, difficulty swallowing, difficulty chewing. No chest pain, shortness of breath, dyspnea on exertion, cough. No abdominal discomfort. No bowel or bladder complaints. No diarrhea or constipation. No dysuria or polyuria. She again has no joint arthralgias. No myalgias. No numbness or tingling in the upper or lower extremities. No arthritic joints. No skin rash or breakdown. PHYSICAL EXAMINATION: General: Patient is an elderly woman seen lying in bed. She is awake, alert, and cooperative. No acute distress. HEENT: She is normocephalic and atraumatic. Her extraocular muscles appear full. She has no obvious facial weakness. Dry mucous membranes. Neck: Supple. Extremities: Without any pitting edema or calf tenderness. She has some abrasions in the distal lower extremity, and some ecchymosis in the upper extremities from blood draws. Neuromuscular: She is awake, alert. She is oriented to person and place, but did not know the month. Her cranial nerves II through XII appear grossly intact. She has good strength and range throughout her upper and lower limbs. She has some mild arthritic changes in the hands which are not limiting. Normal sensation to light touch and pinprick. Symmetric reflexes. Downgoing toes. Good sitting and standing balance. OVERALL IMPRESSION: 1. Deficits in mobility activities of daily living which are mild. 2. Mild deconditioning. 3. Congestive heart failure exacerbation, improving. 4. Mildly decreased mental status not oriented to time. 5. Atrial fibrillation on Xarelto. 6. Coronary artery disease, status post stent. 7. Status post hypokalemia. 8. Elevated TSH with normal free T4. 9. Hypoalbuminemia, increased risk for decubitus ulcer. 10. History of hypertension. 11. Mild arthritis of the hands. PLAN/SUGGESTION: 1. Continue physical therapy at the bedside, bed mobility, transfers, gait training, strengthening, reconditioning. Family training if appropriate. 2. Continue out of bed to chair. 3. DVT prophylaxis. Patient is on Xarelto. 4. Skin precautions. Avoid heel and sacral pressure. 5. Consider dietary evaluation. 6. Probable home with home care once medically stable. 7. Monitor bowels for constipation. Thank you for this consultation. ALBA RAMÍREZ M.D. [id number]
[2018-11-09] MEDS ORDERED: FLUTICASONE/SALMETEROL 100 MCG/50 MCG DISKUS IH SCH (13:45)
[2018-11-09 13:49] VITALS: BP 109/70; PULSE 109
--- NOTE | 2018-11-09 13:56 | DS ---
Physical Examination Vital Signs: Vital Signs Temperature 97.8 F 11/09/18 13:48 Pulse Rate 109 H 11/09/18 13:48 Respiratory Rate 18 11/09/18 13:48 Blood Pressure 109/70 11/09/18 13:48 O2 Sat by Pulse Oximetry (%) 96 11/09/18 08:40 Constitutional: Yes: Calm Cardiovascular: Yes: Regular Rate and Rhythm, S1, S2 Respiratory: Yes: Diminished Gastrointestinal: Yes: Normal Bowel Sounds, Soft Edema: No Neurological: Yes: Alert, Oriented Labs: CBC, BMP 11/07/18 06:45 11/08/18 06:30 Discharge Summary Reason For Visit: SHORT OF BREATH, ACUTE CONGESTIVE HEART FAILURE Current Active Problems Acute CHF (Acute) Asthma (Acute) Atrial fibrillation (Acute) HTN (hypertension) (Acute) Pulmonary HTN (Acute) SOB (shortness of breath) (Acute) Hospital Course: HIEF COMPLAINT: shortness of breath PCP: Brenden HISTORY OF PRESENT ILLNESS: 88yo woman c/o SOB for one week with cough, whitish sputum. Decreased exercise tolerance. Denied overt chest pain. +orthopnea. Reports history of afib for which she takes Xarelto, followed by Dr. Wilcox. Had echo 4 yrs ago. ER course was notable for: (1) Furosemide (2) ekg in hospital on telemetry floor got iv lasix now change to po lasix tsh noted to be increased to 4.5 synthroid dose incrased to 37.5 mcg po daily Condition: Stable - Instructions Diet, Activity, Other Instructions: take levothyroxine 37.5 mcg po daily in AM on empty stomach prior to breakfast FOllow up with PMD for labwork to check TSH and BMP Referrals: Tesha Wilcox MD [Primary Care Provider] - Disposition: HOME - Home Medications Comprehensive Discharge Medication List: Ambulatory Orders Atenolol [Tenormin -] 50 mg PO BID 11/08/18 Dorzolamide HCl/Pf [Dorzolamide 2% Eye Drop] 1 drop 11/08/18 Fluticasone/Salmeterol [Advair 250-50 Diskus] 1 each IH BID 11/08/18 Levothyroxine [Synthroid -] 25 mcg PO DAILY 11/08/18 Rivaroxaban [Xarelto -] 20 mg PO DAILY 11/08/18 Simvastatin 20 mg PO DAILY 11/08/18
[2018-11-10] MEDS ORDERED: LEVOTHYROXINE NA 25 MCG TABLET (FP) PO SCH (07:00)
== END 2018-11-09 15:52 | disposition home or self-care (01) | DRG 293 ==
LOC: JER 16:50 → JERBED 19:07 → J4S 11-06 01:33
PROVIDERS: ADMIT Family Medicine; ATTEND Family Medicine
DX: I11.0 Hypertensive heart disease with heart failure (principal); I50.33 Acute on chronic diastolic (congestive) heart failure; I25.10 Atherosclerotic heart disease of native coronary artery without angina pectoris; J45.909 Unspecified asthma, uncomplicated; I48.91 Unspecified atrial fibrillation; I27.20 Pulmonary hypertension, unspecified; I34.0 Nonrheumatic mitral (valve) insufficiency; E88.09 Other disorders of plasma-protein metabolism, not elsewhere classified; Z79.01 Long term (current) use of anticoagulants
CPT/HCPCS: 36415; 71045-TC-FY; 71046-TC-FY; 80048; 80053; 80061; 82550; 83036; 83721; 83735; 83880; 84439; 84443; 84484; 85025; 85610; 93005; 93010; 93306-TC; 94640; 97116-GP; 97161-GP; 99284-25